=== PATIENT | female | born 1960 | race Caucasian/White ===

== ENCOUNTER → 2016-07-26 | Outpatient (CLI) | payer OTHER | LOC: MC.RAD 10:48 | DX: Z12.31 Encounter for screening mammogram for malignant neoplasm of breast (principal) ==

== ENCOUNTER 2017-01-25 08:08 | Outpatient (RCR) | payer OTHER | END 2017-02-02 13:46 | disposition still patient (30) | LOC: WSOH 08:08 | DX: M17.12 Unilateral primary osteoarthritis, left knee (principal) ==

== ENCOUNTER → 2017-08-03 | Outpatient (CLI) | payer BC | LOC: MC.RAD 11:34 | DX: Z12.31 Encounter for screening mammogram for malignant neoplasm of breast (principal) ==

== ENCOUNTER → 2018-08-30 | Outpatient (CLI) | payer BC | LOC: MC.RAD 07:09 | DX: Z12.31 Encounter for screening mammogram for malignant neoplasm of breast (principal) ==

== ENCOUNTER → 2019-02-06 | Outpatient (CLI) | payer BC ==
[2019-02-06 08:35] LABS: PROTHROMBIN TIME 11.1 SECONDS (9.7-12.8)
[2019-02-06 08:37] LABS: ALBUMIN 4.3 gm/dL (3.5-5.0); BILIRUBIN,TOTAL 0.3 mg/dL (0.0-1.0); CALCIUM 9.2 mg/dL (8.4-10.2); CREATININE, serum 1.21 (0.52-1.25); POTASSIUM 4.6 mmol/L (3.4-5.0); TOTAL PROTEIN 7.6 gm/dL (6.4-8.2)
[2019-02-06 08:43] LABS: BASO % 0.5 % (0.0-2.0); EOS # 0.2 (0.0-0.7); EOS % 2.6 % (0-4.0); GRAN # 4.7 (1.4-6.5); GRAN % 70.6 % (42.2-75.2); HEMATOCRIT 39.8 % (37.0-47.0); HEMOGLOBIN 13.2 g/dl (12.5-16.0); LYMPH # 1.2 (1.2-3.4); LYMPH % 17.7 % (20.0-51.0); MEAN CELL VOLUME 95 fl (80.0-100.0); MEAN CORPUSCULAR HEMOGLOBIN 32 pg (27.0-31.0); MEAN CORPUSCULAR HGB CONC 33 g/dl (33.0-37.0); MEAN PLATELET VOLUME 11.6 fl (7.4-10.4); MONO # 0.5 (0.1-0.6); MONO % 8.1 % (1.7-9.3); PLATELET COUNT 279 K/mm3 (130-400); RED BLOOD COUNT 4.19 M/mm3 (4.10-5.30); REDCELL DISTRIBUTION WIDTH-CV 12.5 % (11.5-14.5)
[2019-02-06 08:52] LABS: MUCOUS Present /lpf; PH 5 (5-8); SQUAMOUS EPITHELIAL 0-2 /hpf; URINE APPEARANCE Hazy; URINE BACTERIA Many /hpf; URINE BILIRUBIN Negative (NEGATIVE); URINE BLOOD Negative (NEGATIVE); URINE COLOR Yellow; URINE GLUCOSE Negative (NEGATIVE); URINE KETONE Negative (NEGATIVE); URINE LEUKOCYTE ESTERASE Negative (NEGATIVE); URINE NITRATE Negative (NEGATIVE); URINE PROTEIN(semi-quant) Negative (NEGATIVE); URINE UROBILINOGEN Negative (NEGATIVE)
[2019-02-06 09:00] LABS: COLLECTION METHOD CLEAN CATCH
== END ==
LOC: COL.CARD 02-03 07:00
PROVIDERS: Orthopaedic Surgery
DX: M25.662 Stiffness of left knee, not elsewhere classified (principal); M17.12 Unilateral primary osteoarthritis, left knee

== ENCOUNTER → 2019-11-27 | Outpatient (CLI) | payer BC | LOC: MC.RAD 12:40 | DX: Z12.31 Encounter for screening mammogram for malignant neoplasm of breast (principal) ==

== ENCOUNTER → 2020-08-31 | Outpatient (CLI) | payer BC ==
[~2020-08-31] VITALS: Ht 170.2 cm; Wt 84.5 kg
[2020-08-31] VITALS (7 sets, daily range): BP systolic 115–141; BP diastolic 64–79; PULSE 59–92
[~2020-08-31] MED LIST: ASPIRIN E.C. 8181 MG PO; BUTALBITAL ACET1 CAP PO; CELEBREX 200MG200 MG PO; COSOPT 2%-0.5%10 ML OU; DESYREL 50MG50 MG PO; ESTRACE 1MG1 MG/TAB PO; ESTROVEN MAX400 MCG; INDERAL60 MG PO; LIPITOR 10MG10 MG PO; MICROZIDE12.5 MG PO; NITROSTAT0.4 MG/TAB SL; NORVASC 5MG5 MG/TAB PO; PREVACID 30MG30 M1 PO; PROZAC40 MG PO; SINGULAIR 110 MG/TAB PO; TOPROL XL 25MG25 MG PO; WELLBUTRIN SR150 M1 PO
--- NOTE | 2020-08-31 12:03 | NUR ---
Notified Dr. Valenzuela of abnormal resting, no ST depression or elevation is noted and no acute findings. Physican said to still proceed with test.
== END ==
LOC: COL.CARD 10:24
DX: R07.9 Chest pain, unspecified (principal)
CPT/HCPCS: A9500; J2785

== ENCOUNTER 2021-01-05 09:44 | Inpatient (IN) | payer BC ==
[~2021-01-05] VITALS: Ht 170.2 cm; Wt 93.3 kg
[~2021-01-05 09:44] MED LIST changes: -ASPIRIN E.C. 8181 MG PO; -BUTALBITAL ACET1 CAP PO; -ESTROVEN MAX400 MCG; -NITROSTAT0.4 MG/TAB SL; -NORVASC 5MG5 MG/TAB PO; -TOPROL XL 25MG25 MG PO
[2021-01-05 10:42] LABS: BASO % 0.3 % (0.0-2.0); EOS # 0.2 (0.0-0.7); EOS % 2.5 % (0-4.0); GRAN # 3.7 (1.4-6.5); GRAN % 61.9 % (42.2-75.2); HEMOGLOBIN 12.1 g/dl (12.5-16.0); LYMPH # 1.6 (1.2-3.4); MEAN CELL VOLUME 92 fl (80.0-100.0); MEAN CORPUSCULAR HEMOGLOBIN 31 pg (27.0-31.0); MEAN CORPUSCULAR HGB CONC 34 g/dl (33.0-37.0); MEAN PLATELET VOLUME 11.8 fl (7.4-10.4); MONO # 0.5 (0.1-0.6); PLATELET COUNT 232 K/mm3 (130-400); RED BLOOD COUNT 3.92 M/mm3 (4.10-5.30); REDCELL DISTRIBUTION WIDTH-CV 12.8 % (11.5-14.5)
[2021-01-05 10:44] LABS: HEMATOCRIT 36.1 % (37.0-47.0)
[2021-01-05 10:55] LABS: ALANINE AMINOTRANSFERASE 25 U/L (4-34); ALBUMIN 3.8 gm/dL (3.5-5.0); ALKALINE PHOSPHATASE 67 U/L (50-136); ANION GAP 7 mmol/L (7-16); AST,SGOT 29 U/L (15-37); BILIRUBIN,TOTAL 0.2 mg/dL (0.0-1.0); BLOOD UREA NITROGEN 20 mg/dL (7-17); CALCIUM 8.4 mg/dL (8.4-10.2); CARBON DIOXIDE 25 mmol/L (22-30); CHLORIDE 103 mmol/L (98-107); CREATININE, serum 1.19 (0.52-1.25); GLUCOSE 143 mg/dL (74-106); SODIUM 135 mmol/L (137-145); TOTAL PROTEIN 6.9 gm/dL (6.4-8.2)
[2021-01-05 11:22] LABS: C-REACTIVE PROTEIN 0.7 mg/dL (0.0-0.9); LIPASE 141 U/L (23-300)
[2021-01-05 11:23] LABS: TROPONIN-I < 0.012 ng/mL (0.000-0.035)
[2021-01-05] MEDS ORDERED: BUTALBITAL ACET1 CAP PO (15:44)
[2021-01-05] MEDS ORDERED: ESTROVEN MAX400 MCG (15:46)
[2021-01-05 16:20] LABS: PROTHROMBIN TIME 11.1 SECONDS (9.7-12.8)
[2021-01-05 16:24] VITALS: BP 142/67; PULSE 56; TEMP 98
[2021-01-05 19:04] VITALS: BP 131/62; PULSE 66; TEMP 98.5
[2021-01-05 23:21] VITALS: BP 111/58; PULSE 66; TEMP 98
[2021-01-06] VITALS (17 sets, daily range): BP systolic 93–168; BP diastolic 49–91; PULSE 59–96; TEMP 97.6–98.7
[2021-01-06 06:34] LABS: CALCIUM 9.1 mg/dL (8.4-10.2); CREATININE, serum 1.13 (0.52-1.25); POTASSIUM 3.8 mmol/L (3.4-5.0)
[2021-01-06 06:37] LABS: BASO % 0.5 % (0.0-2.0); EOS # 0.2 (0.0-0.7); EOS % 3.6 % (0-4.0); GRAN # 3.7 (1.4-6.5); GRAN % 62.1 % (42.2-75.2); HEMATOCRIT 37.8 % (37.0-47.0); HEMOGLOBIN 12.6 g/dl (12.5-16.0); LYMPH # 1.4 (1.2-3.4); LYMPH % 24.3 % (20.0-51.0); MEAN CELL VOLUME 92 fl (80.0-100.0); MEAN CORPUSCULAR HEMOGLOBIN 31 pg (27.0-31.0); MEAN CORPUSCULAR HGB CONC 33 g/dl (33.0-37.0); MEAN PLATELET VOLUME 12.1 fl (7.4-10.4); MONO # 0.6 (0.1-0.6); MONO % 9.3 % (1.7-9.3); PLATELET COUNT 230 K/mm3 (130-400); RED BLOOD COUNT 4.09 M/mm3 (4.10-5.30); REDCELL DISTRIBUTION WIDTH-CV 12.8 % (11.5-14.5)
[2021-01-06 10:31] LABS: INR 1.1 (0.8-3.0); PROTHROMBIN TIME 12.3 SECONDS (9.7-12.8)
[2021-01-06 10:32] LABS: PARTIAL THROMBOPLASTIN TIME 33.3 SECONDS (26.0-37.0)
[2021-01-06] MEDS ORDERED: TOPROL XL 25MG25 MG PO (15:52)
[2021-01-06] MEDS ORDERED: NORVASC 5MG5 MG/TAB PO (15:52)
[2021-01-06] MEDS ORDERED: ASPIRIN E.C. 8181 MG PO (15:52)
[2021-01-06] MEDS ORDERED: NITROSTAT0.4 MG/TAB SL (16:02)
== END 2021-01-06 23:11 | disposition home or self-care (01) | DRG 287 ==
LOC: COL.ER 09:44 → MEDICAL 12:48
PROVIDERS: Nurse Practitioner; ADMIT Internal Medicine
PROC: 4A023N6 Measurement of Cardiac Sampling and Pressure, Right Heart, Percutaneous Approach (ICD-10-PCS; principal; 2021-01-06)
PROC: B2111ZZ Fluoroscopy of Multiple Coronary Arteries using Low Osmolar Contrast (ICD-10-PCS; 2021-01-06)
DX: R07.89 Other chest pain (principal); F32.9 Major depressive disorder, single episode, unspecified; E78.5 Hyperlipidemia, unspecified; K21.9 Gastro-esophageal reflux disease without esophagitis; M19.90 Unspecified osteoarthritis, unspecified site; Z90.49 Acquired absence of other specified parts of digestive tract; Z90.710 Acquired absence of both cervix and uterus; Z96.652 Presence of left artificial knee joint; Z20.822 Contact with and (suspected) exposure to COVID-19
CPT/HCPCS: 99232-AI; G0378; J1644; J2250; J2270; J3010; Q9967

== ENCOUNTER → 2022-01-03 | Outpatient (CLI) | payer BC ==
[~2022-01-03] MED LIST changes: +ASPIRIN E.C. 8181 MG PO; +BUTALBITAL ACET1 CAP PO; +ESTROVEN MAX400 MCG; +NITROSTAT0.4 MG/TAB SL; +NORVASC 5MG5 MG/TAB PO; +TOPROL XL 25MG25 MG PO
== END ==
LOC: MC.RAD 07:20
DX: Z12.31 Encounter for screening mammogram for malignant neoplasm of breast (principal)